=== PATIENT | male | born 1985 | race Caucasian/White ===

== ENCOUNTER → 2020-05-08 | Outpatient (CLI) | payer BC ==
[~2020-05-08] MED LIST: DECADRON4 MG PO; IBUPROFEN600 MG PO; SKELAXIN800 MG PO; ZITHROMAX250 MG PO
== END ==
LOC: KOH-I 16:11
DX: R05 Cough (principal); R07.82 Intercostal pain; M62.838 Other muscle spasm
CPT/HCPCS: 71045; 71111